=== PATIENT | female | born 1980 | race Caucasian/White ===

== ENCOUNTER 2017-06-04 17:12 | Inpatient (IN) | payer MEDICAID ==
[~2017-06-04] VITALS: Ht 167.6 cm; Wt 63.5 kg
--- NOTE | 2017-06-04 17:22 | NUR ---
PATIENT BIB AMBULANCE TO BED 12 AT THIS TIME
[2017-06-04 17:23] VITALS: BP 160/78
[2017-06-04] MEDS ORDERED: NACL 0.9% 1,000 ML IV ONE (17:50)
[2017-06-04] MEDS ORDERED: LORazepam 2 MG/ML VIAL IVP ONE (17:50)
--- NOTE | 2017-06-04 18:05 | NUR ---
PATIENT BIBA DUE TO FOREIGN BODY IN VAGINA;APPROX 6 GMS OF METHAMPHETAMINE INSERTED BY PT AT 0800, THEN ARRESTED, TAKEN TO [facility], WAS RELEASED. BECAME SYMOPTOMATIC, TAKEN TO [facility] WHERE MD TOOK APPROX 1 GRAM OF METH FROM PLASTIC BAG.PT IS SHAKY; FEELS NAUSEOUS BUT DENIES VOMITTING;SKIN IS PINK/WARM/DRY; AAOX4; LUNGS CLEAR BL;PT DENIES ANY FEVER, CP, SOB, OR COUGH AT THIS TIME; PATIENT STATES PAIN OF 0/10 AT THIS TIME PATIENT POSITIONED FOR COMFORT; HOB ELEVATED; BEDRAILS UP X2; BED DOWN. ER MD MADE AWARE OF PT STATUS.
--- NOTE | 2017-06-04 18:58 | NUR ---
PT WENT TO RESTROOM;PT UNABLE TO GIVE URINE AT THIS TIME;
--- NOTE | 2017-06-04 19:08 | NUR ---
PELVIC EXAM DONE WITH DR. LUO
--- NOTE | 2017-06-04 19:10 | NUR ---
RECEIVED REPORT FROM ZEFERINO CLAY. TRANSFER OF CARE AT THIS TIME.
[2017-06-04 19:28] LABS: HEMATOCRIT 34.8 % (36-48); HEMOGLOBIN 11.6 g/dL (12.0-16.0); MEAN CORPUSCULAR HEMOGLOBIN 29 pg (27-31); MEAN CORPUSCULAR HGB CONC 33 g/dL (33-37); MEAN CORPUSCULAR VOLUME 88 fL (80-94); PLATELET COUNT (AUTO) 374 K/uL (140-450); RED BLOOD CELL COUNT(AUTO) 3.93 MIL/uL (4.20-5.40); RED CELL DISTRIBUTION WIDTH 13.4 % (11.6-13.7); WHITE BLOOD COUNT (AUTO) 20.8 K/uL (4.8-10.8)
[2017-06-04 19:43] LABS: LYMPHOCYTES % (MANUAL) 1 % (20-46); MONOCYTES % (MANUAL) 2 % (5-12)
--- NOTE | 2017-06-04 19:45 | NUR ---
PT UNABLE TO PROVIDE URINE. ER MD DR. ABURTO NOTIFIED.
[2017-06-04 19:49] LABS: ANION GAP 14.9 (8-16); CARBON DIOXIDE 24.3 mmol/L (21-32); CREATININE 1.1 mg/dL (0.6-1.3); POTASSIUM 4.2 mmol/L (3.5-5.1); PROTHROMBIN TIME 10.9 secs (10.8-13.4)
[2017-06-04 20:04] LABS: ALBUMIN 3.7 g/dL (3.4-5.0); TOTAL BILIRUBIN 0.4 mg/dL (0.0-1.0)
[2017-06-04] MEDS: NACL 0.9% 1,000 ML IV SCH (20:09)
[2017-06-04] MEDS ORDERED: ONDANSETRON 4 MG/2 ML VIAL IVP PRN (20:10)
[2017-06-04] MEDS ORDERED: HYDROcodone/APAP 7.5/325 MG 1 TAB PO PRN (20:10)
[2017-06-04] MEDS ORDERED: ACETAMINOPHEN 325 MG TAB PO PRN (20:10)
[2017-06-04 20:57] LABS: CHOL/HDL RATIO 2.5 (1-4.5); FREE T4 (FREE THYROXINE) 1.16 ng/dL (0.76-1.46); MAGNESIUM 1.7 mg/dL (1.8-2.4); PHOSPHORUS 2.8 mg/dL (2.5-4.9); THYROID STIMULATING HORMONE 1.7 uIU/mL (0.34-3.74)
--- NOTE | 2017-06-04 21:00 | NUR ---
PT ABLE TO GIVE URINE.
--- NOTE | 2017-06-04 21:04 | NUR ---
Patient will be admitted to care of DR. MEREDITH. Admited to TELE. Will go to room 111B. Belongings list completed. Report to TORREY CLAY.
[2017-06-04 21:10] VITALS: BP 144/84
--- NOTE | 2017-06-04 21:10 | NUR ---
PATIENT ADMITTED TO THE UNIT FROM ER. ALERT AND AWAKE. NO SIGNS AND SYMPTOMS OF DISTRESS NOTED. NO COMPLAINTS OF PAIN AT THIS TIME. SKIN IS INTACT. IV SITE NOTED ON RIGHT AC. IVF INFUSING WELL. BED IN LOWEST POSITION, SIDE RAILS UP AND CALL LIGHT WITHIN REACH. WILL CONTINUE TO MONITOR.
[2017-06-04 21:27] LABS: APPEARANCE,URINE CLEAR (CLEAR); BILIRUBIN,URINE NEGATIVE (NEGATIVE); BLOOD, URINE 2+ (NEGATIVE); COLOR,URINE YELLOW (YELLOW); LEUKOCYTE ESTERASE ,URINE TRACE (NEGATIVE); NITRITE, URINE NEGATIVE (NEGATIVE); UGLUCOSE NEGATIVE (NEGATIVE)
--- NOTE | 2017-06-04 21:30 | NUR ---
PATIENT SEEN BY DR. WETZEL
[2017-06-04 21:37] LABS: BARBITURATE, URINE NEG. ng/ml (NEG <=200); BENZODIAZEPINE, URINE NEG. ng/mL (NEG <=200); CANNABINOID, URINE NEG. ng/mL (NEG <=50); COCAINE, URINE NEG. ng/mL (NEG <=300); OPIATE, URINE NEG. ng/mL (NEG <=2000); PHENCYCLIDINE SCREEN,URINE NEG. ng/mL (NEG <=25)
[2017-06-04] MEDS ORDERED: NACL 0.9% 1,000 ML IV SCH (21:40)
[2017-06-04 21:44] LABS: RBC,URINE 3-10 (FEW) /HPF (0-5); URIC ACID CRYSTALS,URINE 0-10 /HPF (None Seen); URINE AMORPHOUS URATE 3+ /HPF (None Seen); WBC,URINE 0-5 (RARE) /HPF (0-5)
[2017-06-04] MEDS: DOCUSATE SODIUM 100 MG GELCAP PO SCH (21:46)
[2017-06-04] MEDS ORDERED: SIMETHICONE 80 MG TAB.CHEW PO PRN (22:00)
[2017-06-04] MEDS ORDERED: MAGNESIUM CITRATE 300 ML BTL PO SCH (22:00)
--- NOTE | 2017-06-04 22:00 | NUR ---
XRAY OF THE PELVIS DONE
[2017-06-04] MEDS ORDERED: LORazepam 1 MG TAB PO PRN (22:05)
[2017-06-04] MEDS ORDERED: cefTRIAXone 1,000 MG VIAL ONE (22:13)
[2017-06-05] VITALS: BP 144/94
[2017-06-05] MEDS ORDERED: MAG SULF 2000 MG/WATER PREMIX 50 ML IV SCH (01:00)
--- NOTE | 2017-06-05 03:00 | NUR ---
CHECKED ON PATIENT. PATIENT IS ASLEEP. NO SIGNS AND SYMPTOMS OF DISTRESS NOTED. WILL CONTINUE TO MONITOR.
[2017-06-05 04:00] VITALS: BP 139/89
[2017-06-05] MEDS: NACL 0.9% 1,000 ML IV SCH ×3 (04:09→18:24)
[2017-06-05 07:18] LABS: BASOPHILS # (AUTO) 0.1 K/uL (0.00-0.22); BASOPHILS % (AUTO) 0.8 % (0.0-2.0); EOSINOPHILS # (AUTO) 0.1 K/uL (0-0.4); EOSINOPHILS % (AUTO) 0.8 % (0.0-4.0); HEMATOCRIT 33.9 % (36-48); HEMOGLOBIN 11.6 g/dL (12.0-16.0); LYMPHOCYTES # (AUTO) 2.1 K/uL (2.5-16.5); LYMPHOCYTES % (AUTO) 13.3 % (20.5-51.1); MEAN CORPUSCULAR HEMOGLOBIN 31 pg (27-31); MEAN CORPUSCULAR HGB CONC 34 g/dL (33-37); MEAN CORPUSCULAR VOLUME 89 fL (80-94); MONOCYTES # (AUTO) 1.1 K/uL (0.8-1.0); MONOCYTES % (AUTO) 6.8 % (1.7-9.3); NEUTROPHILS # (AUTO) 12.4 K/uL (1.8-7.7); NEUTROPHILS % (AUTO) 78.3 % (42.2-75.2); PLATELET COUNT (AUTO) 364 K/uL (140-450); RED BLOOD CELL COUNT(AUTO) 3.81 MIL/uL (4.20-5.40); RED CELL DISTRIBUTION WIDTH 13.6 % (11.6-13.7); WHITE BLOOD COUNT (AUTO) 15.8 K/uL (4.8-10.8)
[2017-06-05 07:19] LABS: ANION GAP 12.4 (8-16); CARBON DIOXIDE 27.6 mmol/L (21-32); CREATININE 0.9 mg/dL (0.6-1.3)
--- NOTE | 2017-06-05 07:30 | NUR ---
RECEIVED PT AAOX4. NO SOB NOTED. NO C/O PAIN AT THIS TIME. IV TO RT AC PATENT AND INTACT. CHEST CLEAR. ABDOMEN SOFT, BOWEL SOUNDS PRESENT. NO SIGNS AND SYMPTOMS OF DRUG WITHDRAWAL NOTED AT THIS TIME. INSTRUCTED PT TO CALL FOR ASSISTANCE, CALL LIGHT WITHIN REACH, PT VERBALIZED UNDERSTANDING.
--- NOTE | 2017-06-05 07:30 | NUR ---
PATIENT REPORT GIVEN TO MORNING NURSE AT BEDSIDE. PATIENT IS IN STABLE CONDITION
[2017-06-05 07:31] LABS: MAGNESIUM 2.8 mg/dL (1.8-2.4)
[2017-06-05 08:00] VITALS: BP 134/80
--- NOTE | 2017-06-05 08:55 | NUR ---
PATIENT HAS BEEN SCREENED AND CATEGORIZED LOW NUTRITION RISK. PATIENT WILL BE SEEN WITHIN 7 DAYS OF ADMISSION. 06/10/[address]
[2017-06-05] MEDS ORDERED: LACTOBACILLUS RHAMNOSUS GG 1 EACH CAP PO SCH (09:00)
--- NOTE | 2017-06-05 09:00 | NUR ---
PT INSTRUCTED ON NPO FOR ULTRASOUND OF ABDOMEN AT 1500 HRS. PT VERBALIZED UNDERSTANDING.
[2017-06-05] MEDS: DOCUSATE SODIUM 100 MG GELCAP PO SCH ×2 (09:38→21:00)
[2017-06-05 12:00] VITALS: BP 141/84
--- NOTE | 2017-06-05 12:00 | NUR ---
PT SLEEPING. NO SOB NOTED. NO SIGNS OF PAIN.
--- NOTE | 2017-06-05 15:30 | NUR ---
ULTRASOUND OF ABDOMEN ON GOING AT THE BEDSIDE. NPO MAINTAINED.
[2017-06-05 16:00] VITALS: BP 149/91
--- NOTE | 2017-06-05 17:00 | NUR ---
ULTRASOUND DONE, RESUMED DIET. PT EATING DINNER NOW.
--- NOTE | 2017-06-05 18:56 | NUR ---
PT AWAKE, NO SOB NOTED. NO C/O PAIN AT THIS TIME. FAMILY AT THE BEDSIDE. WILL ENDORSE TO NEXT SHIFT NURSE FOR CONTINUITY OF CARE.
--- NOTE | 2017-06-05 19:20 | NUR ---
PATIENT REPORT RECEIVED FROM MORNING NURSE AT BEDSIDE. PATIENT RESTING COMFORTABLY IN BED. NO SIGNS AND SYMPTOMS OF DISTRESS NOTED. NO COMPLAINTS OF PAIN AT THIS TIME. IV SITE NOTED ON RIGHT AC, IVF INFUSING WELL. BED IN LOWEST POSITION, SIDE RAILS UP AND CALL LIGHT WITHIN REACH. WILL CONTINUE TO MONITOR.
[2017-06-05 20:00] VITALS: BP 134/83
--- NOTE | 2017-06-05 20:00 | NUR ---
PATIENT STATED THAT SHE FELT "ICKY" AND WOULD LIKE TO TAKE A SHOWER. TOLD HER THAT I WOULD ASK THE IF IT WAS OK.
--- NOTE | 2017-06-05 20:15 | NUR ---
DR. ROSAS SAID OK FOR PATIENT TO TAKE A SHOWER.
--- NOTE | 2017-06-05 20:45 | NUR ---
PATIENT'S FRIENDS AT BEDSIDE, EATING DINNER
--- NOTE | 2017-06-05 21:00 | NUR ---
PATIENT REFUSED COLACE, STATED THAT SHE ALREADY HAD A BOWEL MOVEMENT TODAY. EDUCATED HER ON MEDICATION
--- NOTE | 2017-06-05 21:20 | NUR ---
CHECKED ON PATIENT. PATIENT ASKED IF SHE COULD TAKE A SHOWER. TOLD HER THAT THE SAID OK. GAVE HER A BIN WITH A NEW GOWN, TOWELS, SHAMPOO, AND BODY WASH. HELPED HER REMOVE TELE BOX, REMOVED TUBING CONNECTED TO IV, COVERED IV SITE WITH COMPOSITE DRESSING SO THAT IT WOULD NOT GET WET. TOLD HER WHERE THE SHOWER WAS. SHE SAID THAT SHE DIDN'T WANT ANY HELP. WILL CONTINUE TO MONITOR. Addendum: 06/05/17 at 2308 by Nimesh Gee RN WRONG TIME 2109, NOT [id number]
--- NOTE | 2017-06-05 21:30 | NUR ---
NOTICED THAT PATIENT'S FRIEND LEFT BY HIMSELF Addendum: 06/05/17 at 2306 by Nimesh Gee RN [id number] Addendum: 06/05/17 at 2306 by Nimesh Gee RN TIME WRONG, AROUND [id number]
--- NOTE | 2017-06-05 21:45 | NUR ---
CHECKED ON PATIENT. DID NOT FIND HER IN ROOM, CHECKED EVERY SHOWER AND RESTROOM AND DID NOT FIND HER. SECURITY, CHARGE NURSE AND DR. ROSAS NOTIFIED. PATIENT LEFT GOWNS AND TELE BOX IN ROOM AND TOOK ALL HER BELONGINGS
--- NOTE | 2017-06-05 21:50 | NUR ---
CHARGE NURSE TRIED CONTACTING PATIENT'S MOTHER, ANA M YADAV, SEVERAL TIMES, NO ANSWER.
--- NOTE | 2017-06-05 22:30 | NUR ---
WIRE TURNING MACHINE OPERATOR TIFFANIE, LEFT MESSAGE AT PATIENT'S HOME NUMBER: [phone]. TRIED CONTACTING MOTHER, MIAH TALAVERA SEVERAL TIMES, NO ANSWER.
--- NOTE | 2017-06-05 23:30 | NUR ---
PATIENT ELOPEMENT REPORTED TO POLICE. POLICE IS PRESENT IN UNIT.
== END 2017-06-05 21:45 | disposition left against medical advice (07) | DRG 812 ==
LOC: MED 17:12 → UNDOADMIN 20:14 → MTU 20:14 → UNDODISIN 06-05 21:45
PROVIDERS: ADMIT Family Medicine Sports Medicine; ATTEND Family Medicine Sports Medicine
DX: T43.621A Poisoning by amphetamines, accidental (unintentional), initial encounter (principal); G92 Toxic encephalopathy; M62.82 Rhabdomyolysis; I15.8 Other secondary hypertension; I10 Essential (primary) hypertension; N39.0 Urinary tract infection, site not specified; D64.9 Anemia, unspecified; F15.229 Other stimulant dependence with intoxication, unspecified; Z53.21 Procedure and treatment not carried out due to patient leaving prior to being seen by health care provider; F12.90 Cannabis use, unspecified, uncomplicated; R74.0 Nonspecific elevation of levels of transaminase and lactic acid dehydrogenase [LDH]; F17.210 Nicotine dependence, cigarettes, uncomplicated; Z98.891 History of uterine scar from previous surgery; Y92.89 Other specified places as the place of occurrence of the external cause; Z91.013 Allergy to seafood
CPT/HCPCS: 36415; 71045; 72170; 76705; 80048; 80053; 80305; 81001; 82550; 82553; 83036; 83735; 83874; 83880; 84100; 84439; 84443; 84484; 85025; 85610; 85730; 87081; 87086; 96361; 96374; 99285; J0696; J2060; J3475; J7030; J7060; Q0092